=== PATIENT | female | born 1995 | race Caucasian/White ===

== ENCOUNTER 2017-06-22 21:07 | Emergency (ER) | payer MEDICAID ==
[~2017-06-22] VITALS: Ht 149.9 cm; Wt 62.0 kg
[2017-06-22 23:54] LABS: BASOPHILS % 0.2 % (0.0-2.0); EOSINOPHILS % 0.1 % (0.0-5.0); HEMATOCRIT. 36.4 % (36.0-48.0); HEMOGLOBIN. 12.9 g/dL (12.0-16.0); LYMPHOCYTES % 7.8 % (20.0-50.0); MEAN CORPUSCULAR HEMOGLOBIN 30.1 pg (28.0-32.0); MEAN CORPUSCULAR VOLUME 84.6 fL (81.0-99.0); MONOCYTES % 4.1 % (2.0-8.0); NEUTROPHILS % 87.8 % (40.0-76.0); PLATELET 226 x1000/uL (130-400); RED CELL DISTRIBUTION WIDTH 13.8 % (11.6-14.6)
[2017-06-23 00:01] LABS: CHLORIDE 103 mEq/L (98-107)
[2017-06-23 00:08] LABS: INR 0.9; PROTHROMBIN TIME 9.8 sec (9.4-11.6)
[2017-06-23 00:26] LABS: B-HCG QUANTITATIVE 24782 mIU/mL (<3)
[2017-06-23] MEDS ORDERED: ONDANSETRON HCL 4MG/2ML VIAL IV STA (00:28)
[2017-06-23] MEDS ORDERED: ACETAMINOPHEN 325MG TABLET PO STA (00:28)
[2017-06-23 01:00] LABS: CLARITY URINE CLEAR (CLEAR); COLOR URINE DARK YELLOW (YELLOW); KETONES URINE 4+ (NEGATIVE); LEUKOCYTE ESTERASE URINE NEGATIVE (NEGATIVE); NITRITE URINE NEGATIVE (NEGATIVE); OCCULT BLOOD URINE NEGATIVE (NEGATIVE); PH URINE 5.5 (4.5-8.0); PROTEIN URINE TRACE (NEGATIVE); SPECIFIC GRAVITY URINE 1.036 (1.005-1.030)
[2017-06-23 01:20] LABS: *AMPHETAMINES SCREEN URINE NEGATIVE (NEGATIVE); *BARBITURATES SCREEN URINE NEGATIVE (NEGATIVE); *BENZODIAZEPINES SCREEN URINE NEGATIVE (NEGATIVE); *COCAINE SCREEN URINE NEGATIVE (NEGATIVE)
[2017-06-23] MEDS ORDERED: SODIUM CHLORIDE 0.9% 1,000 ML IV ONE (01:20)
[2017-06-23 01:21] LABS: CANNABINOID URINE SCREEN NEGATIVE (NEGATIVE); METHADONE URINE SCREEN NEGATIVE (NEGATIVE); OPIATES URINE SCREEN NEGATIVE (NEGATIVE); PHENCYCLIDINE URINE SCREEN NEGATIVE (NEGATIVE)
[2017-06-23 05:00] VITALS: BP 119/64
== END 2017-06-23 05:54 | disposition home or self-care (01) ==
LOC: ER 21:07
DX: O26.892 Other specified pregnancy related conditions, second trimester (principal); R10.2 Pelvic and perineal pain; R30.0 Dysuria; Z3A.16 16 weeks gestation of pregnancy
CPT/HCPCS: 36415; 80053; 80305; 81003; 81025; 83690; 84702; 85025; 85610; 87086; 96361; 96374; 99284; G0482; J2405; J7030; Z7610